=== PATIENT | male | born 1970 | race Caucasian/White ===

== ENCOUNTER 2019-03-05 14:27 | Inpatient (IN) | payer MEDICAID ==
[~2019-03-05] VITALS: Ht 185.4 cm; Wt 84.1 kg
[2019-03-05] MEDS ORDERED: HYDROmorphone 1 mg/ml syringe IV PRN (14:50)
[2019-03-05] MEDS ORDERED: ondansetron/PF 4mg/2ml inj IV ONE (14:50)
[2019-03-05] MEDS ORDERED: normal saline 1000ML IV soln IVB ONE (14:50)
[2019-03-05] MEDS ORDERED: potassium CL 10mEq/100ml bag 100 ML IV PRN ×2 (15:25)
[2019-03-05] MEDS ORDERED: ondansetron/PF 4mg/2ml inj IV PRN (15:25)
[2019-03-05] MEDS ORDERED: ipratropium/albuterol 3ml nebule NEB PRN (15:25)
[2019-03-05] MEDS ORDERED: morphine 2 MG/ML inj. syringe IV PRN (15:25)
[2019-03-05] MEDS ORDERED: magnesium 4gm in 100ml NS 100 ML IV PRN (15:25)
[2019-03-05] MEDS ORDERED: magnesium 2GM in 50ml NS 50 ML IV PRN (15:25)
[2019-03-05] MEDS ORDERED: potassium Cl 20 mEq SR tablet PO PRN ×2 (15:25)
[2019-03-05] MEDS ORDERED: docusate sod 100mg capsule PO PRN (15:25)
[2019-03-05] MEDS ORDERED: mag hydrox/Alum hydrox/simeth 30ml oral suspension PO PRN (15:25)
[2019-03-05] MEDS ORDERED: acetaminophen 325mg tablet PO PRN (15:25)
[2019-03-05] MEDS ORDERED: NO HOME MEDS (15:31)
[2019-03-05] MEDS: normal saline 1000ml 1,000 ML IV SCH (15:56)
[2019-03-05 16:02] LABS: BASOPHILS % (AUTO) 0.5 % (0-1); EOSINOPHILS # (AUTO) 0.1 X10'3 (0-0.9); EOSINOPHILS % (AUTO) 1.5 % (0-6); HEMATOCRIT 38.9 % (42.0-52.0); HEMOGLOBIN 13.4 g/dl (14.0-17.9); LYMPHOCYTES # (AUTO) 1.9 X10'3 (1.1-4.8); LYMPHOCYTES % (AUTO) 25.9 % (21-51); MEAN CORPUSCULAR HEMOGLOBIN 30.9 PG (27.0-31.0); MEAN CORPUSCULAR HGB CONC 34.4 g/dL (33.0-36.5); MEAN CORPUSCULAR VOLUME 89.7 FL (78-98); MEAN PLATELET VOLUME 7.9 FL (7.4-10.4); MONOCYTES # (AUTO) 0.8 X10'3 (0-0.9); MONOCYTES % (AUTO) 10.3 % (2-12); NEUTROPHILS # (AUTO) 4.5 X10'3 (1.8-7.7); NEUTROPHILS % (AUTO) 61.8 % (42-75); PLATELET COUNT 164 X10'3 (140-440); RED BLOOD COUNT 4.33 X10'6 (4.70-6.10); RED CELL DISTRIBUTION WIDTH 13.4 % (11.5-14.5); WHITE BLOOD COUNT 7.4 X10'3 (4.5-11.0)
[2019-03-05 16:20] LABS: ALANINE AMINOTRANSFERASE 32 U/L (12-78); ALBUMIN 2.8 G/DL (3.4-5.0); ALKALINE PHOSPHATASE 79 IU/L (46-116); ANION GAP 7 (8-16); ASPARTATE AMINO TRANSFERASE 26 U/L (10-37); BILIRUBIN,TOTAL 0.4 MG/DL (0.1-1.0); BLOOD UREA NITROGEN 14 MG/DL (7-18); BUN/CREATININE RATIO 11.1 (5.4-32.0); CALCIUM 7.2 MG/DL (8.5-10.1); CHLORIDE 114 MMOL/L (99-107); CREATININE 1.26 MG/DL (0.60-1.10); GLUCOSE 94 MG/DL (70-104); POTASSIUM 4.1 MMOL/L (3.5-5.1); SODIUM 142 MMOL/L (135-145); TOTAL CARBON DIOXIDE 21.4 MMOL/L (24-32); TOTAL PROTEIN 5.5 G/DL (6.4-8.2); eGFR 61 ML/MIN
--- NOTE | 2019-03-05 16:38 | NUR ---
Zahra abdul in [facility] - 03/05/19 at [address] Duenas via telephone, hold blood transfusion until after "scope" procedure is done.
[2019-03-05] MEDS: morphine 2 MG/ML inj. syringe IV PRN (16:53)
--- NOTE | 2019-03-05 17:04 | NUR ---
I have received report from CHANCE Peñaloza and had the opportunity to ask questions and assume patient care.
[2019-03-05 17:15] VITALS: BP 132/82
[2019-03-05] MEDS: nicotine 21mg patch - 24 hr TD SCH (17:52)
--- NOTE | 2019-03-05 18:38 | NUR ---
Patient in room [facility]. I have received report from CHANCE Dorado and had the opportunity to ask questions and assume patient care.
--- NOTE | 2019-03-05 18:52 | NUR ---
Problems reprioritized. Patient report given, questions answered & plan of care reviewed with CHANCE Lawrence.
[2019-03-05 19:00] VITALS: BP 130/85
[2019-03-05] MEDS ORDERED: tamsulosin 0.4mg capsule PO SCH (21:00)
[2019-03-05 22:32] LABS: CLARITY,URINE CLEAR (Clear); COLOR,URINE YELLOW (Yellow); GLUCOSE, URINE NEGATIVE (Neg); KETONES,URINE NEGATIVE (Neg); LEUKOCYTE ESTERASE ,URINE NEGATIVE (Neg); NITRITES, URINE NEGATIVE (Neg); OCCULT BLOOD,URINE LARGE (Neg); PH,URINE 5.5 (4.8-8.0); PROTEIN,URINE TRACE mg/dl (Neg); UROBILINOGEN,URINE 0.2 E.U/dL (0.2-1.0)
[2019-03-05 22:33] LABS: UA COLLECTION TYPE VOIDED
[2019-03-05 22:41] LABS: BACTERIA,URINE NONE SEEN /HPF (Neg); MUCUS STRANDS FEW /LPF (Neg); SQUAMOUS EPITHELIAL CELL,UR NONE SEEN /LPF (FEW); WBC,URINE 0-4 /HPF (0-4)
[2019-03-05 22:42] LABS: CELLULAR CAST 0-4 /LPF (NEGATIVE); FINE GRANULAR CAST 0-3 /LPF (NEGATIVE); HYALINE CASTS 0-3 /LPF (NEGATIVE)
[2019-03-06 00:47] VITALS: BP 136/73
[2019-03-06] MEDS: normal saline 1000ml 1,000 ML IV SCH ×3 (01:58→13:09)
[2019-03-06] MEDS: morphine 2 MG/ML inj. syringe IV PRN (04:41)
[2019-03-06 05:01] LABS: BASOPHILS % (AUTO) 0.5 % (0-1); EOSINOPHILS # (AUTO) 0.3 X10'3 (0-0.9); EOSINOPHILS % (AUTO) 3.5 % (0-6); HEMATOCRIT 40.4 % (42.0-52.0); HEMOGLOBIN 13.7 g/dl (14.0-17.9); LYMPHOCYTES # (AUTO) 1.8 X10'3 (1.1-4.8); LYMPHOCYTES % (AUTO) 24.9 % (21-51); MEAN CORPUSCULAR HEMOGLOBIN 30.6 PG (27.0-31.0); MEAN CORPUSCULAR HGB CONC 33.8 g/dL (33.0-36.5); MEAN CORPUSCULAR VOLUME 90.6 FL (78-98); MEAN PLATELET VOLUME 7.9 FL (7.4-10.4); MONOCYTES # (AUTO) 0.6 X10'3 (0-0.9); MONOCYTES % (AUTO) 8.7 % (2-12); NEUTROPHILS # (AUTO) 4.5 X10'3 (1.8-7.7); NEUTROPHILS % (AUTO) 62.4 % (42-75); PLATELET COUNT 190 X10'3 (140-440); RED BLOOD COUNT 4.46 X10'6 (4.70-6.10); RED CELL DISTRIBUTION WIDTH 13.8 % (11.5-14.5); WHITE BLOOD COUNT 7.3 X10'3 (4.5-11.0)
[2019-03-06 05:16] LABS: ALANINE AMINOTRANSFERASE 34 U/L (12-78); ALKALINE PHOSPHATASE 92 IU/L (46-116); ANION GAP 7 (8-16); ASPARTATE AMINO TRANSFERASE 23 U/L (10-37); BILIRUBIN,TOTAL 0.4 MG/DL (0.1-1.0); BLOOD UREA NITROGEN 12 MG/DL (7-18); BUN/CREATININE RATIO 9.9 (5.4-32.0); CALCIUM 7.7 MG/DL (8.5-10.1); CHLORIDE 110 MMOL/L (99-107); CREATININE 1.21 MG/DL (0.60-1.10); GLUCOSE 90 MG/DL (70-104); MAGNESIUM 1.9 MG/DL (1.5-2.4); POTASSIUM 3.9 MMOL/L (3.5-5.1); SODIUM 141 MMOL/L (135-145); TOTAL CARBON DIOXIDE 23.9 MMOL/L (24-32); eGFR 64 ML/MIN
--- NOTE | 2019-03-06 06:54 | NUR ---
Patient in room [facility] 349. I have received report from Rudy FLETCHER and had the opportunity to ask questions and assume patient care.
[2019-03-06 07:35] VITALS: BP 121/76
[2019-03-06] MEDS ORDERED: enoxaparin 40mg/0.4ml syringe SQ SCH (08:00)
[2019-03-06] MEDS ORDERED: K and/or MAG REPLACEMENT MC SCH (08:00)
[2019-03-06] MEDS: nicotine 21mg patch - 24 hr TD SCH (08:00)
[2019-03-06 11:54] VITALS: BP 130/79
[2019-03-06] MEDS ORDERED: HYDR-4383 PO (14:06)
[2019-03-06] MEDS ORDERED: NICO-687 TD (14:06)
[2019-03-06] MEDS ORDERED: tamsulosin capsule PO (14:06)
--- NOTE | 2019-03-06 14:58 | NUR ---
PT DC 03/06/19 at 1400. Pt was wheeled out carrying his belongings. His was going to drive him home. He was A&O X4, no apparent pain or discomfort. Pt has been instructed to follow up with Dr. Carrero within 1-2 weeks. Pt given nicotine patches to help with smoking cessation. Pt verbalizes and states understanding of discharge instructions.
== END 2019-03-06 14:35 | disposition home or self-care (01) | DRG 465 ==
LOC: ER 14:28 → SUR 3N 17:12 → CMPBEDREQ 19:42
PROVIDERS: ADMIT Family Medicine; ATTEND Family Medicine
DX: N13.2 Hydronephrosis with renal and ureteral calculous obstruction (principal); F15.10 Other stimulant abuse, uncomplicated; F17.210 Nicotine dependence, cigarettes, uncomplicated; Z90.49 Acquired absence of other specified parts of digestive tract; Z71.6 Tobacco abuse counseling
CPT/HCPCS: 36415; 74018; 80053; 81001; 83735; 85025; 87081; 94760; 96361; 96374; 96375; 99285; G0378; J1170; J2270; J2405; J7030